=== PATIENT | male | born 1985 | race Hispanic/Latino ===

== ENCOUNTER → 2022-11-06 | Outpatient (CLI) | payer OTHER | LOC: M RAD 07:10 | PROVIDERS: ATTEND Physician Assistant | DX: M79.604 Pain in right leg (principal); M54.50 Low back pain, unspecified; M25.551 Pain in right hip ==

== ENCOUNTER → 2025-07-30 | Outpatient (CLI) | payer OTHER | LOC: M SLEEP HO 10:58 | PROVIDERS: ATTEND Physician Assistant | DX: I27.81 Cor pulmonale (chronic) (principal); G47.33 Obstructive sleep apnea (adult) (pediatric) ==

== ENCOUNTER → 2025-08-02 | Outpatient (CLI) | payer OTHER | LOC: M PLAIMG 11:05 | PROVIDERS: ATTEND Physician Assistant | DX: R94.31 Abnormal electrocardiogram [ECG] [EKG] (principal) ==